=== PATIENT | male | born 1955 | race Hispanic/Latino ===

== ENCOUNTER 2022-04-17 13:19 | Inpatient (IN) | payer OTHER, MEDICAID ==
[~2022-04-17 13:19] MED LIST: Iopamidol-370 76% 500 ML MDV (1 ML CHARGE) ONE
[2022-04-17] MEDS ORDERED: Rocuronium Bromide 10 MG/ML (10ML VIAL) ONE (13:24)
[2022-04-17] MEDS ORDERED: CEFAZOLIN 2 GM VIAL ONE (13:26)
[2022-04-17] MEDS ORDERED: Boostrix 0.5 ML (Tdap) VIAL (>/=7 yrs of age) ONE (13:26)
[2022-04-17] MEDS ORDERED: Lorazepam 2 MG/ML VIAL SLOW IVP PRN (13:30)
[2022-04-17] MEDS ORDERED: Propofol 1,000 MG/100 ML VIAL IV PRN (13:30)
[2022-04-17] MEDS ORDERED: Fentanyl CADD 100 ML IV SCH (13:30)
[2022-04-17] MEDS ORDERED: Morphine 2 MG/ML VIAL SLOW IVP PRN (13:30)
[2022-04-17] MEDS ORDERED: Propofol BOLUS 1,000 MG/100 ML VIAL IV PRN (13:30)
[2022-04-17] MEDS ORDERED: Fentanyl BOLUS 250 ML IVPB PRN (13:30)
[2022-04-17 13:31] LABS: #Eosinphils 0.2 thou/uL (0.0-0.7); #Lymphocytes 4.1 thou/uL (1.20-3.40); #Monocytes 0.8 thou/uL (0.11-0.59); #Neutrophils 9.1 thou/uL (1.40-6.50); %Basophils 0.2 % (0.0-1.0); %Eosinophils 1.1 % (0.0-10.0); %Lymphocytes 28.8 % (21.0-51.0); %Monocytes 5.6 % (0.0-10.0); %Neutrophils 64.3 % (42.0-75.0); Hemoglobin 11.3 g/dL (14.0-18.0); Mean Corpuscular HGB CONC 32.9 g/dL (32.0-36.0); Mean Corpuscular Hemoglobin 30.9 pg (27.0-31.0); Mean Corpuscular Volume 93.8 fl (78.0-98.0); Mean Platelet Volume 7.7 fL (7.4-10.4); Platelet Count 236 10x3/uL (130-400); RBC Distribution Width 10.9 % (11.5-14.5); Red Blood Cell (RBC) Count 3.65 mill/uL (4.70-6.10); White Blood Cell (WBC) Count 14.2 10x3/uL (4.8-10.8)
[2022-04-17 13:42] LABS: PTT 27.9 sec (22.9-36.1); Prothrombin Time 13.7 sec (12.0-14.7)
[2022-04-17] MEDS ORDERED: Propofol 1,000 MG/100 ML VIAL IV ONE (13:43)
[2022-04-17 14:02] LABS: Albumin 4.1 g/dL (3.4-4.8); Calcium 8.9 mg/dL (7.8-10.44); Chloride 106 mmol/L (98-107); Potassium 4.9 mmol/L (3.5-5.1); Sodium 134 mmol/L (136-145)
[2022-04-17 14:03] LABS: Glucose 279 mg/dL (80-115)
[2022-04-17 14:04] LABS: Globulin 3.8 g/dL (2.4-3.5); Protein, Total 7.9 g/dL (5.8-8.1)
[2022-04-17] MEDS ORDERED: Dextrose 50% Abboject 50 ML SYRINGE SLOW IVP PRN (14:04)
[2022-04-17] MEDS ORDERED: Ipratropium/Albuterol 3 ML NEB NEB PRN (14:04)
[2022-04-17] MEDS ORDERED: hydrALAZINE 20 MG/ML VIAL SLOW IVP PRN (14:04)
[2022-04-17] MEDS ORDERED: Dextrose 5% in Water 1,000 ML IV PRN (14:04)
[2022-04-17 14:05] LABS: Anion Gap 20 mmol/L (10-20); Bilirubin, Total 0.4 mg/dL (0.2-1.2); Carbon Dioxide 13 mmol/L (23-31)
[2022-04-17 14:06] LABS: Alkaline Phosphatase 117 U/L (40-110)
[2022-04-17 14:07] LABS: BUN (Urea Nitrogen) 19 mg/dL (8.4-25.7); Calc. Creatinine Clearance 0 mL/min (70-130); Estimated GFR 60
[2022-04-17 14:08] LABS: AST (SGOT) 66 U/L (5-34)
[2022-04-17 14:09] LABS: ALT (SGPT) 42 U/L (8-55); Lipase 37 U/L (8-78)
[2022-04-17] MEDS ORDERED: hydrALAZINE 20 MG/ML VIAL ONE ×2 (14:15→14:16)
[2022-04-17 14:16] LABS: Actual Bicarbonate (HCO3a) 19.3 mEq/L (22-28); Analyzer IN Cardio ER; Base Excess (BEa) -2.2 mEq/L (-2.0 to +3.0); Calcium, Ionized (arterial) 1.06 mmol/L (1.12-1.30); Carboxyhemoglobin (COHb) 0.2 gm% (0.0-3.0); O2 Tension (PaO2), arterial 617.5 mmHg (> 80.0); Potassium - ABG Lab 3.83 mmol/L (3.70-5.30); pH, Arterial 7.53 (7.35-7.45)
[2022-04-17] MEDS ORDERED: Labetalol HCl 100 MG/20 ML VIAL SLOW IVP PRN (14:16)
[2022-04-17 14:17] LABS: CO2 Tension 23.5 mmHg (35.0-45.0)
[2022-04-17 14:18] LABS: ALV-art Gradient 66.125 mmHg (0-20); Puncture Site RRA
[2022-04-17 14:43] LABS: Bilirubin Negative (Negative); Blood, Urine Trace (Negative); Clarity Clear (Clear); Glucose, Urine (Dipstick) Normal (Negative); Ketone, Urine Negative (Negative); Leukocyte Negative Leu/uL (Negative); Nitrite Negative (Negative); Protein, Urine (Dipstick) 30 mg/dL (Neg-Trace); RBC/HPF 0-3 HPF (0-3); Specific Gravity, Urine 1.018 (1.002-1.036); Squamous Epithelial 0-3 HPF (0-3); Transitional Epithelial 0-3 HPF (None Seen); Urobilinogen Normal mg/dL (Less than 2); WBC/HPF 0-3 HPF (0-3); pH, Urine 6.5 (5.0-9.0)
[2022-04-17 14:46] LABS: Amphetamine Not Detected (NotDetected); Barbiturates Screen Not Detected (NotDetected); Benzodiazepine Screen Not Detected (NotDetected); Cocaine Metabolite Screen Not Detected (NotDetected); Methadone Not Detected (NotDetected); Methamphetamine Not Detected (NotDetected); Opiate Screen Not Detected (NotDetected); Oxycodone Screen Not Detected (NotDetected); Phencyclidine (PCP) Not Detected (NotDetected); THC/Cannabinoid Screen Not Detected (NotDetected); Tricyclic Screen Not Detected (NotDetected)
[2022-04-17 14:48] LABS: Acetaminophen Less than 10.0 mcg/mL (10.0-30.0); Alcohol Less than 10 mg/dL (Less than 10); Magnesium 1.5 mg/dL (1.6-2.6); Salicylate Less than 8.0 mg/dL (15.0-30.0)
[2022-04-17 14:52] LABS: Bacteria/HPF Rare-Few HPF (None Seen)
[2022-04-17] MEDS ORDERED: Aspirin 325 MG TAB PO SCH (15:00)
[2022-04-17] MEDS ORDERED: Sodium Phosphate 30 MMOL in Sodium Chloride 0.9% 250 ML 250 ML IVPB SCH (15:00)
[2022-04-17] MEDS ORDERED: Acetaminophen 500 MG TAB PO SCH (15:15)
[2022-04-17] MEDS ORDERED: Magnesium Sulfate In Water 4 GM in Premix Bag 1 BAG IVPB SCH (15:15)
[2022-04-17 15:21] LABS: SARS-CoV-2 NAA Rapid Test Not Detected (NotDetected)
[2022-04-17] MEDS: Sodium Chloride 0.9% 1,000 ML IV SCH (15:33)
[2022-04-17] MEDS ORDERED: Calcium Chloride 13.6 MEQ in Sodium Chloride 0.9% 100 ML IVPB SCH (16:00)
[2022-04-17 16:08] LABS: Actual Bicarbonate (HCO3a) 20.8 mEq/L (22-28); Base Excess (BEa) -2.2 mEq/L (-2.0 to +3.0); CO2 Tension 30.1 mmHg (35.0-45.0); Calcium, Ionized (arterial) 1.15 mmol/L (1.12-1.30); Carboxyhemoglobin (COHb) 0.5 gm% (0.0-3.0); Hemoglobin (Hb) 11.2 g/dL (14.0-18.0); O2 Tension (PaO2), arterial 156.1 mmHg (> 80.0); Potassium - ABG Lab 4.36 mmol/L (3.70-5.30); pH, Arterial 7.46 (7.35-7.45)
[2022-04-17 16:13] LABS: ALV-art Gradient 20.175 mmHg (0-20); Puncture Site RRA
[2022-04-17 16:35] LABS: Lactic Acid 2.2 mmol/L (0.5-2.2)
[2022-04-17] MEDS: Insulin Regular 300 UNITS/3 ML VIAL SC PRN ×2 (18:26→22:29)
[2022-04-17] MEDS: Ipratropium/Albuterol 3 ML NEB NEB SCH (19:09)
[2022-04-17] MEDS: Famotidine/PF 20 mg/2ml Vial SLOW IVP SCH (20:21)
[2022-04-17] MEDS: Senokot S 8.6-50 MG TAB PO SCH (20:21)
[2022-04-17] MEDS: Acetaminophen 500 MG TAB PO SCH (23:16)
[2022-04-18] MEDS: Sodium Chloride 0.9% 1,000 ML IV SCH ×3 (04:06→20:02)
[2022-04-18 04:11] LABS: #Lymphocytes 0.9 thou/uL (1.20-3.40); #Monocytes 1.2 thou/uL (0.11-0.59); #Neutrophils 10.1 thou/uL (1.40-6.50); %Basophils 0.1 % (0.0-1.0); %Eosinophils 0.2 % (0.0-10.0); %Lymphocytes 7.5 % (21.0-51.0); %Monocytes 9.6 % (0.0-10.0); %Neutrophils 82.7 % (42.0-75.0); Hemoglobin 8.8 g/dL (14.0-18.0); Mean Corpuscular HGB CONC 34.3 g/dL (32.0-36.0); Mean Corpuscular Hemoglobin 31.9 pg (27.0-31.0); Mean Corpuscular Volume 92.8 fl (78.0-98.0); Mean Platelet Volume 8.3 fL (7.4-10.4); Platelet Count 151 10x3/uL (130-400); RBC Distribution Width 10.9 % (11.5-14.5); Red Blood Cell (RBC) Count 2.76 mill/uL (4.70-6.10); White Blood Cell (WBC) Count 12.2 10x3/uL (4.8-10.8)
[2022-04-18 04:23] LABS: Lactic Acid 1.9 mmol/L (0.5-2.2)
[2022-04-18 04:37] LABS: Anion Gap 16 mmol/L (10-20); BUN (Urea Nitrogen) 16 mg/dL (8.4-25.7); Calc. Creatinine Clearance 57 mL/min (70-130); Calcium 8.7 mg/dL (7.8-10.44); Carbon Dioxide 19 mmol/L (23-31); Chloride 107 mmol/L (98-107); Estimated GFR 68; Glucose 203 mg/dL (80-115); Magnesium 2.4 mg/dL (1.6-2.6); Phosphorus 4.4 mg/dL (2.3-4.7); Potassium 4.5 mmol/L (3.5-5.1); Sodium 137 mmol/L (136-145)
[2022-04-18] MEDS: Acetaminophen 500 MG TAB PO SCH ×3 (05:12→17:48)
[2022-04-18 06:50] LABS: Actual Bicarbonate (HCO3a) 22.2 mEq/L (22-28); Base Excess (BEa) -1.6 mEq/L (-2.0 to +3.0); CO2 Tension 33.7 mmHg (35.0-45.0); Calcium, Ionized (arterial) 1.12 mmol/L (1.12-1.30); Carboxyhemoglobin (COHb) 0.2 gm% (0.0-3.0); Hemoglobin (Hb) 9.2 g/dL (14.0-18.0); O2 Tension (PaO2), arterial 146.2 mmHg (> 80.0); Potassium - ABG Lab 4.38 mmol/L (3.70-5.30); pH, Arterial 7.44 (7.35-7.45)
[2022-04-18] MEDS: Ipratropium/Albuterol 3 ML NEB NEB SCH ×3 (07:08→18:37)
[2022-04-18 07:10] LABS: ALV-art Gradient 25.575 mmHg (0-20); Puncture Site RBA
[2022-04-18] MEDS: Lisinopril 2.5 MG TAB PO SCH (08:07)
[2022-04-18] MEDS: Aspirin 325 MG TAB PO SCH (08:07)
[2022-04-18] MEDS: Famotidine/PF 20 mg/2ml Vial SLOW IVP SCH ×2 (08:07→20:02)
[2022-04-18] MEDS: Polyethylene Glycol 3350 17 GM Packet PO SCH (08:07)
[2022-04-18] MEDS: Senokot S 8.6-50 MG TAB PO SCH ×2 (08:07→20:02)
[2022-04-18] MEDS: Ondansetron PF 4 MG/2 ML Vial IVP PRN ×2 (10:48→14:47)
[2022-04-18] MEDS: Insulin Regular 300 UNITS/3 ML VIAL SC PRN ×2 (11:11→16:58)
[2022-04-18] MEDS ORDERED: Lidocaine 1% (PF) 30 ML VIAL SC SCH (12:45)
[2022-04-18] MEDS ORDERED: Lidocaine 1% (PF) 30 ML VIAL ONE (12:54)
[2022-04-18] MEDS: Scopolamine 1.5 mg/72 hour Patch TD SCH (14:07)
[2022-04-18] MEDS ORDERED: Midazolam HCl 2 mg/2 ml Vial ONE (14:32)
[2022-04-18] MEDS ORDERED: Fentanyl 100 MCG/2 ML VIAL SLOW IVP SCH (14:45)
[2022-04-19] MEDS: Acetaminophen 500 MG TAB PO SCH ×2 (00:30→05:17)
[2022-04-19 04:04] LABS: #Lymphocytes 0.8 thou/uL (1.20-3.40); #Monocytes 1.1 thou/uL (0.11-0.59); %Basophils 0.1 % (0.0-1.0); %Eosinophils 0.1 % (0.0-10.0); %Lymphocytes 6.1 % (21.0-51.0); %Monocytes 8.7 % (0.0-10.0); Hemoglobin 8.3 g/dL (14.0-18.0); Mean Corpuscular HGB CONC 34.2 g/dL (32.0-36.0); Mean Corpuscular Volume 93.7 fl (78.0-98.0); Mean Platelet Volume 8.2 fL (7.4-10.4); Platelet Count 130 10x3/uL (130-400); Red Blood Cell (RBC) Count 2.59 mill/uL (4.70-6.10); White Blood Cell (WBC) Count 12.9 10x3/uL (4.8-10.8)
[2022-04-19 04:41] LABS: Anion Gap 13 mmol/L (10-20); BUN (Urea Nitrogen) 13 mg/dL (8.4-25.7); Calc. Creatinine Clearance 76 mL/min (70-130); Calcium 7.9 mg/dL (7.8-10.44); Carbon Dioxide 19 mmol/L (23-31); Chloride 108 mmol/L (98-107); Estimated GFR 94; Glucose 181 mg/dL (80-115); Phosphorus 3.1 mg/dL (2.3-4.7); Potassium 4.1 mmol/L (3.5-5.1); Sodium 136 mmol/L (136-145)
[2022-04-19] MEDS: Ipratropium/Albuterol 3 ML NEB NEB SCH ×3 (06:46→18:46)
[2022-04-19] MEDS ORDERED: Sodium Phosphate 15 MMOL in Sodium Chloride 0.9% 250 ML 250 ML IVPB SCH (09:00)
[2022-04-19] MEDS: Sodium Chloride 0.9% 1,000 ML IV SCH (09:33)
[2022-04-19] MEDS: Famotidine/PF 20 mg/2ml Vial SLOW IVP SCH ×2 (10:45→21:31)
[2022-04-19] MEDS: Polyethylene Glycol 3350 17 GM Packet PO SCH (10:45)
[2022-04-19] MEDS: Aspirin 325 MG TAB PO SCH (10:45)
[2022-04-19] MEDS: Senokot S 8.6-50 MG TAB PO SCH ×2 (10:45→21:32)
[2022-04-19] MEDS: Lisinopril 2.5 MG TAB PO SCH (10:45)
[2022-04-19] MEDS: Acetaminophen 325 MG TAB PO SCH ×2 (10:45→19:22)
[2022-04-19] MEDS: Insulin Regular 300 UNITS/3 ML VIAL SC PRN ×2 (17:43→21:32)
[2022-04-19] MEDS: Acetaminophen/Codeine 30-300mg Tablet PO PRN (19:23)
[2022-04-19] MEDS ORDERED: Sodium Chloride 0.9% 1,000 ML IV SCH (20:45)
[2022-04-20] MEDS: Acetaminophen 325 MG TAB PO SCH ×4 (00:22→17:34)
[2022-04-20] MEDS: Insulin Regular 300 UNITS/3 ML VIAL SC PRN ×2 (04:32→15:10)
[2022-04-20 05:05] LABS: #Lymphocytes 0.9 thou/uL (1.20-3.40); #Monocytes 1.2 thou/uL (0.11-0.59); #Neutrophils 11.5 thou/uL (1.40-6.50); %Basophils 0.2 % (0.0-1.0); %Eosinophils 0.2 % (0.0-10.0); %Lymphocytes 6.3 % (21.0-51.0); %Neutrophils 84.3 % (42.0-75.0); Hemoglobin 9.8 g/dL (14.0-18.0); Mean Corpuscular HGB CONC 33.6 g/dL (32.0-36.0); Mean Corpuscular Hemoglobin 31.7 pg (27.0-31.0); Mean Corpuscular Volume 94.4 fl (78.0-98.0); Mean Platelet Volume 8.9 fL (7.4-10.4); Platelet Count 137 10x3/uL (130-400); RBC Distribution Width 11.1 % (11.5-14.5); Red Blood Cell (RBC) Count 3.08 mill/uL (4.70-6.10); White Blood Cell (WBC) Count 13.6 10x3/uL (4.8-10.8)
[2022-04-20 05:34] LABS: Anion Gap 11 mmol/L (10-20); BUN (Urea Nitrogen) 16 mg/dL (8.4-25.7); Calc. Creatinine Clearance 74 mL/min (70-130); Calcium 7.9 mg/dL (7.8-10.44); Carbon Dioxide 20 mmol/L (23-31); Chloride 108 mmol/L (98-107); Estimated GFR 92; Glucose 210 mg/dL (80-115); Magnesium 1.9 mg/dL (1.6-2.6); Phosphorus 2.4 mg/dL (2.3-4.7); Potassium 4.2 mmol/L (3.5-5.1); Sodium 135 mmol/L (136-145)
[2022-04-20] MEDS: Ipratropium/Albuterol 3 ML NEB NEB SCH ×3 (06:41→18:58)
[2022-04-20] MEDS ORDERED: Sodium Phosphate 15 MMOL in Sodium Chloride 0.9% 250 ML 250 ML IVPB SCH (09:00)
[2022-04-20] MEDS: Aspirin 325 MG TAB PO SCH (09:49)
[2022-04-20] MEDS: Senokot S 8.6-50 MG TAB PO SCH ×2 (09:49→21:03)
[2022-04-20] MEDS: Polyethylene Glycol 3350 17 GM Packet PO SCH (09:50)
[2022-04-20] MEDS: Famotidine 20 MG TAB PO SCH ×2 (09:50→21:03)
[2022-04-20] MEDS: Tamsulosin HCl 0.4 MG CAP PO SCH (09:50)
[2022-04-20] MEDS: Lisinopril 2.5 MG TAB PO SCH (09:50)
[2022-04-21] MEDS: Acetaminophen 325 MG TAB PO SCH ×4 (00:59→17:43)
[2022-04-21 04:16] LABS: #Lymphocytes 0.7 thou/uL (1.20-3.40); #Neutrophils 7.5 thou/uL (1.40-6.50); %Basophils 0.1 % (0.0-1.0); %Eosinophils 0.4 % (0.0-10.0); %Neutrophils 81.5 % (42.0-75.0); Hemoglobin 8.6 g/dL (14.0-18.0); Mean Corpuscular HGB CONC 33.9 g/dL (32.0-36.0); Mean Corpuscular Hemoglobin 31.8 pg (27.0-31.0); Mean Corpuscular Volume 93.7 fl (78.0-98.0); Mean Platelet Volume 8.7 fL (7.4-10.4); Platelet Count 155 10x3/uL (130-400); RBC Distribution Width 10.9 % (11.5-14.5); Red Blood Cell (RBC) Count 2.71 mill/uL (4.70-6.10); White Blood Cell (WBC) Count 9.2 10x3/uL (4.8-10.8)
[2022-04-21 04:40] LABS: Anion Gap 12 mmol/L (10-20); BUN (Urea Nitrogen) 24 mg/dL (8.4-25.7); Calc. Creatinine Clearance 73 mL/min (70-130); Carbon Dioxide 22 mmol/L (23-31); Chloride 106 mmol/L (98-107); Estimated GFR 91; Glucose 321 mg/dL (80-115); Phosphorus 2.1 mg/dL (2.3-4.7); Potassium 3.6 mmol/L (3.5-5.1); Sodium 136 mmol/L (136-145)
[2022-04-21] MEDS: Ipratropium/Albuterol 3 ML NEB NEB SCH ×3 (06:30→19:46)
[2022-04-21] MEDS ORDERED: Potassium Phosphate 30 MMOL in Sodium Chloride 0.9% 250 ML 250 ML IVPB SCH (07:30)
[2022-04-21] MEDS: Aspirin 325 MG TAB PO SCH (08:00)
[2022-04-21] MEDS: Lisinopril 2.5 MG TAB PO SCH (08:00)
[2022-04-21] MEDS: Tamsulosin HCl 0.4 MG CAP PO SCH (08:00)
[2022-04-21] MEDS: Famotidine 20 MG TAB PO SCH ×2 (08:00→20:58)
[2022-04-21] MEDS: Polyethylene Glycol 3350 17 GM Packet PO SCH (08:07)
[2022-04-21] MEDS: Senokot S 8.6-50 MG TAB PO SCH ×2 (08:08→22:31)
[2022-04-21] MEDS: Insulin Regular 300 UNITS/3 ML VIAL SC PRN ×3 (08:22→17:41)
[2022-04-21] MEDS: Scopolamine 1.5 mg/72 hour Patch TD SCH (12:40)
[2022-04-21 17:50] LABS: Bacteria/HPF 4+ HPF (None Seen); Bilirubin Negative (Negative); Blood, Urine Negative (Negative); CAUTI Indications for Culture Dysuria,urgency,freq; Clarity Clear (Clear); Glucose, Urine (Dipstick) 500 mg/dL (Negative); Ketone, Urine Negative (Negative); Leukocyte Negative Leu/uL (Negative); Nitrite 1+ (Negative); Protein, Urine (Dipstick) 30 mg/dL (Neg-Trace); RBC/HPF 0-3 HPF (0-3); Specific Gravity, Urine 1.025 (1.002-1.036); Squamous Epithelial 0-3 HPF (0-3); Urobilinogen Normal mg/dL (Less than 2); WBC/HPF 0-3 HPF (0-3); pH, Urine 5.5 (5.0-9.0)
[2022-04-21 17:52] LABS: Urine Culture Reflex No No
[2022-04-21] MEDS: Ciprofloxacin 500 MG TAB PO SCH (20:58)
[2022-04-21] MEDS: Acetaminophen/Codeine 30-300mg Tablet PO PRN (21:01)
[2022-04-22] MEDS: Acetaminophen 325 MG TAB PO SCH ×5 (00:13→23:11)
[2022-04-22] MEDS: Insulin Regular 300 UNITS/3 ML VIAL SC PRN ×5 (00:26→22:56)
[2022-04-22] MEDS: Ciprofloxacin 500 MG TAB PO SCH ×2 (05:22→20:13)
[2022-04-22] MEDS: Ipratropium/Albuterol 3 ML NEB NEB SCH ×3 (07:00→19:50)
[2022-04-22] MEDS: Tamsulosin HCl 0.4 MG CAP PO SCH (08:16)
[2022-04-22] MEDS: Famotidine 20 MG TAB PO SCH ×2 (08:16→20:12)
[2022-04-22] MEDS: Lisinopril 2.5 MG TAB PO SCH (08:16)
[2022-04-22] MEDS: Aspirin 325 MG TAB PO SCH (08:16)
[2022-04-22] MEDS: Polyethylene Glycol 3350 17 GM Packet PO SCH (08:17)
[2022-04-22] MEDS: Senokot S 8.6-50 MG TAB PO SCH ×2 (08:17→21:11)
[2022-04-22] MEDS: Acetaminophen/Codeine 30-300mg Tablet PO PRN ×2 (08:22→20:14)
[2022-04-23] MEDS: Ciprofloxacin 500 MG TAB PO SCH (05:17)
[2022-04-23] MEDS: Insulin Regular 300 UNITS/3 ML VIAL SC PRN ×4 (05:17→17:20)
[2022-04-23] MEDS: Acetaminophen 325 MG TAB PO SCH ×3 (05:17→17:20)
[2022-04-23 06:32] LABS: #Eosinphils 0.1 thou/uL (0.0-0.7); #Lymphocytes 0.7 thou/uL (1.20-3.40); #Monocytes 1.1 thou/uL (0.11-0.59); #Neutrophils 9.6 thou/uL (1.40-6.50); %Eosinophils 0.6 % (0.0-10.0); %Lymphocytes 6.1 % (21.0-51.0); %Monocytes 9.6 % (0.0-10.0); %Neutrophils 83.8 % (42.0-75.0); Hemoglobin 8.1 g/dL (14.0-18.0); Mean Corpuscular HGB CONC 32.9 g/dL (32.0-36.0); Mean Corpuscular Hemoglobin 31.4 pg (27.0-31.0); Mean Corpuscular Volume 95.3 fl (78.0-98.0); Mean Platelet Volume 8.3 fL (7.4-10.4); Platelet Count 207 10x3/uL (130-400); RBC Distribution Width 11.6 % (11.5-14.5); Red Blood Cell (RBC) Count 2.58 mill/uL (4.70-6.10); White Blood Cell (WBC) Count 11.4 10x3/uL (4.8-10.8)
[2022-04-23 07:01] LABS: Anion Gap 15 mmol/L (10-20); BUN (Urea Nitrogen) 28 mg/dL (8.4-25.7); Calc. Creatinine Clearance 60 mL/min (70-130); Carbon Dioxide 22 mmol/L (23-31); Chloride 107 mmol/L (98-107); Estimated GFR 69; Glucose 343 mg/dL (80-115); Magnesium 1.9 mg/dL (1.6-2.6); Phosphorus 3.1 mg/dL (2.3-4.7); Potassium 4.6 mmol/L (3.5-5.1); Sodium 139 mmol/L (136-145)
[2022-04-23] MEDS: Ipratropium/Albuterol 3 ML NEB NEB SCH ×3 (08:21→18:33)
[2022-04-23] MEDS: Lisinopril 2.5 MG TAB PO SCH (08:33)
[2022-04-23] MEDS: Aspirin 325 MG TAB PO SCH (08:33)
[2022-04-23] MEDS: Famotidine 20 MG TAB PO SCH ×2 (08:33→20:28)
[2022-04-23] MEDS: Senokot S 8.6-50 MG TAB PO SCH ×2 (08:34→20:28)
[2022-04-23] MEDS: Tamsulosin HCl 0.4 MG CAP PO SCH (08:34)
[2022-04-23] MEDS: Polyethylene Glycol 3350 17 GM Packet PO SCH (08:34)
[2022-04-23] MEDS: Insulin Glargine 30 UNITS/0.3 ML VIAL SC SCH (08:34)
[2022-04-23] MEDS: Nitrofurantoin Monohyd/M-Cryst 100 MG CAP PO SCH (20:28)
[2022-04-24] MEDS: Insulin Regular 300 UNITS/3 ML VIAL SC PRN ×6 (00:02→20:36)
[2022-04-24] MEDS: Acetaminophen 325 MG TAB PO SCH ×4 (00:02→17:24)
[2022-04-24] MEDS: Ipratropium/Albuterol 3 ML NEB NEB SCH ×3 (06:36→19:25)
[2022-04-24] MEDS: Lisinopril 2.5 MG TAB PO SCH (08:18)
[2022-04-24] MEDS: Nitrofurantoin Monohyd/M-Cryst 100 MG CAP PO SCH ×2 (08:18→20:35)
[2022-04-24] MEDS: Polyethylene Glycol 3350 17 GM Packet PO SCH (08:18)
[2022-04-24] MEDS: Famotidine 20 MG TAB PO SCH ×2 (08:18→20:35)
[2022-04-24] MEDS: Aspirin 325 MG TAB PO SCH (08:18)
[2022-04-24] MEDS: Tamsulosin HCl 0.4 MG CAP PO SCH (08:18)
[2022-04-24] MEDS: Senokot S 8.6-50 MG TAB PO SCH ×2 (08:18→20:36)
[2022-04-24] MEDS: Insulin Glargine 30 UNITS/0.3 ML VIAL SC SCH ×2 (08:18→20:35)
[2022-04-24] MEDS: Scopolamine 1.5 mg/72 hour Patch TD SCH (13:01)
[2022-04-24] MEDS: Amantadine HCl 10 mg/ml Oral Solution PER TUBE SCH (20:35)
[2022-04-24] MEDS ORDERED: Amantadine HCl 10 mg/ml Oral Solution PO SCH (21:00)
[2022-04-25] MEDS: Acetaminophen 325 MG TAB PO SCH ×4 (00:27→17:59)
[2022-04-25] MEDS: Insulin Regular 300 UNITS/3 ML VIAL SC PRN ×6 (01:00→21:57)
[2022-04-25] MEDS: Ipratropium/Albuterol 3 ML NEB NEB SCH ×3 (06:42→18:32)
[2022-04-25] MEDS: Famotidine 20 MG TAB PO SCH ×2 (08:24→21:56)
[2022-04-25] MEDS: Lisinopril 2.5 MG TAB PO SCH (08:24)
[2022-04-25] MEDS: Tamsulosin HCl 0.4 MG CAP PO SCH (08:24)
[2022-04-25] MEDS: Aspirin 325 MG TAB PO SCH (08:24)
[2022-04-25] MEDS: Amantadine HCl 10 mg/ml Oral Solution PER TUBE SCH ×2 (08:24→21:56)
[2022-04-25] MEDS: Nitrofurantoin Monohyd/M-Cryst 100 MG CAP PO SCH ×2 (08:24→21:56)
[2022-04-25] MEDS: Polyethylene Glycol 3350 17 GM Packet PO SCH (08:25)
[2022-04-25] MEDS: Senokot S 8.6-50 MG TAB PO SCH ×2 (08:25→21:57)
[2022-04-25] MEDS: Insulin Glargine 30 UNITS/0.3 ML VIAL SC SCH ×2 (08:25→21:57)
[2022-04-25] MEDS: Acetaminophen/Codeine 30-300mg Tablet PO PRN (20:29)
[2022-04-26] MEDS: Acetaminophen 325 MG TAB PO SCH ×4 (01:00→17:46)
[2022-04-26] MEDS: Acetaminophen/Codeine 30-300mg Tablet PO PRN (05:34)
[2022-04-26] MEDS: Ipratropium/Albuterol 3 ML NEB NEB SCH ×3 (07:34→19:36)
[2022-04-26] MEDS: Insulin Glargine 30 UNITS/0.3 ML VIAL SC SCH ×2 (08:43→21:40)
[2022-04-26] MEDS: Insulin Regular 300 UNITS/3 ML VIAL SC PRN ×3 (08:44→17:52)
[2022-04-26] MEDS: Amantadine HCl 10 mg/ml Oral Solution PER TUBE SCH ×2 (08:45→21:39)
[2022-04-26] MEDS: Famotidine 20 MG TAB PO SCH ×2 (08:46→21:40)
[2022-04-26] MEDS: Aspirin 325 MG TAB PO SCH (08:46)
[2022-04-26] MEDS: Tamsulosin HCl 0.4 MG CAP PO SCH (08:46)
[2022-04-26] MEDS: Nitrofurantoin Monohyd/M-Cryst 100 MG CAP PO SCH ×2 (08:46→21:39)
[2022-04-26] MEDS: Lisinopril 2.5 MG TAB PO SCH (08:48)
[2022-04-26] MEDS: Polyethylene Glycol 3350 17 GM Packet PO SCH (08:48)
[2022-04-26] MEDS: Senokot S 8.6-50 MG TAB PO SCH ×2 (08:48→21:40)
[2022-04-27] MEDS: Acetaminophen 325 MG TAB PO SCH ×4 (00:14→18:20)
[2022-04-27] MEDS: Insulin Regular 300 UNITS/3 ML VIAL SC PRN ×6 (00:15→22:08)
[2022-04-27 06:10] LABS: #Lymphocytes 0.8 thou/uL (1.20-3.40); #Monocytes 1.3 thou/uL (0.11-0.59); #Neutrophils 16.4 thou/uL (1.40-6.50); %Basophils 0.2 % (0.0-1.0); %Eosinophils 0.3 % (0.0-10.0); %Lymphocytes 4.5 % (21.0-51.0); %Monocytes 6.9 % (0.0-10.0); %Neutrophils 88.2 % (42.0-75.0); Hemoglobin 8.8 g/dL (14.0-18.0); Mean Corpuscular HGB CONC 32.7 g/dL (32.0-36.0); Mean Corpuscular Hemoglobin 31.3 pg (27.0-31.0); Mean Corpuscular Volume 95.7 fl (78.0-98.0); Mean Platelet Volume 8.4 fL (7.4-10.4); Platelet Count 352 10x3/uL (130-400); RBC Distribution Width 11.9 % (11.5-14.5); Red Blood Cell (RBC) Count 2.82 mill/uL (4.70-6.10); White Blood Cell (WBC) Count 18.6 10x3/uL (4.8-10.8)
[2022-04-27 06:32] LABS: Anion Gap 14 mmol/L (10-20); BUN (Urea Nitrogen) 49 mg/dL (8.4-25.7); Calc. Creatinine Clearance 58 mL/min (70-130); Carbon Dioxide 26 mmol/L (23-31); Chloride 105 mmol/L (98-107); Estimated GFR 60; Glucose 285 mg/dL (80-115); Potassium 4.8 mmol/L (3.5-5.1); Sodium 140 mmol/L (136-145)
[2022-04-27] MEDS: Ipratropium/Albuterol 3 ML NEB NEB SCH ×3 (06:57→19:17)
[2022-04-27] MEDS ORDERED: Piperacillin/Tazobactam 3.375 GM in Sodium Chloride 0.9% 100 ML IVPB SCH ×2 (07:30→08:00)
[2022-04-27] MEDS: Amantadine HCl 10 mg/ml Oral Solution PER TUBE SCH ×2 (08:32→22:16)
[2022-04-27] MEDS: Aspirin 325 MG TAB PO SCH (08:32)
[2022-04-27] MEDS: Famotidine 20 MG TAB PO SCH ×2 (08:33→22:09)
[2022-04-27] MEDS: Insulin Glargine 30 UNITS/0.3 ML VIAL SC SCH ×2 (08:33→22:09)
[2022-04-27] MEDS: Lisinopril 2.5 MG TAB PO SCH (08:34)
[2022-04-27] MEDS: Nitrofurantoin Monohyd/M-Cryst 100 MG CAP PO SCH ×2 (08:34→22:09)
[2022-04-27] MEDS: Senokot S 8.6-50 MG TAB PO SCH ×2 (08:34→22:09)
[2022-04-27] MEDS: Polyethylene Glycol 3350 17 GM Packet PO SCH (08:34)
[2022-04-27] MEDS: Tamsulosin HCl 0.4 MG CAP PO SCH (08:34)
[2022-04-27 08:47] LABS: Bacteria/HPF None Seen HPF (None Seen); Bilirubin Negative (Negative); Blood, Urine Negative (Negative); CAUTI Indications for Culture Alt mental st,lethar; Clarity Clear (Clear); Glucose, Urine (Dipstick) Normal (Negative); Ketone, Urine Negative (Negative); Leukocyte Negative Leu/uL (Negative); Nitrite Negative (Negative); Protein, Urine (Dipstick) 20 mg/dL (Neg-Trace); RBC/HPF 0-3 HPF (0-3); Specific Gravity, Urine 1.024 (1.002-1.036); Squamous Epithelial None Seen HPF (0-3); WBC/HPF 0-3 HPF (0-3); pH, Urine 6.5 (5.0-9.0)
[2022-04-27 08:50] LABS: Urine Culture Reflex No No
[2022-04-27] MEDS: Piperacillin/Tazobactam 3.375 GM in Sodium Chloride 0.9% 100 ML IVPB SCH (16:01)
[2022-04-28] MEDS: Insulin Regular 300 UNITS/3 ML VIAL SC PRN ×5 (01:35→21:21)
[2022-04-28] MEDS: Piperacillin/Tazobactam 3.375 GM in Sodium Chloride 0.9% 100 ML IVPB SCH (01:45)
[2022-04-28] MEDS: Acetaminophen/Codeine 30-300mg Tablet PO PRN (01:46)
[2022-04-28] MEDS: Acetaminophen 325 MG TAB PO SCH ×5 (01:46→17:00)
[2022-04-28 06:15] LABS: Anion Gap 15 mmol/L (10-20); BUN (Urea Nitrogen) 61 mg/dL (8.4-25.7); Calc. Creatinine Clearance 48 mL/min (70-130); Calcium 7.9 mg/dL (7.8-10.44); Carbon Dioxide 26 mmol/L (23-31); Chloride 107 mmol/L (98-107); Estimated GFR 48; Glucose 224 mg/dL (80-115); Magnesium 3.1 mg/dL (1.6-2.6); Phosphorus 4.9 mg/dL (2.3-4.7); Potassium 4.7 mmol/L (3.5-5.1); Sodium 143 mmol/L (136-145)
[2022-04-28] MEDS: Ipratropium/Albuterol 3 ML NEB NEB SCH ×3 (06:18→18:19)
[2022-04-28 06:25] LABS: Band 13 % (5-11); Hemoglobin 8.1 g/dL (14.0-18.0); Hypochromia SLIGHT = 6-15 cells (100X) (0-5/hpf); Lymphocytes 8 % (21-51); MDiff Complete? YES; Mean Corpuscular HGB CONC 32.6 g/dL (32.0-36.0); Mean Corpuscular Hemoglobin 31.2 pg (27.0-31.0); Mean Corpuscular Volume 95.7 fl (78.0-98.0); Mean Platelet Volume 8.6 fL (7.4-10.4); Monocytes 4 % (0-10); Neutrophil 75 % (42-75); Nucleated RBC 1 % (0); Platelet Count 374 10x3/uL (130-400); Platelet Morphology Comment Appears Adequate; RBC Distribution Width 11.9 % (11.5-14.5); Red Blood Cell (RBC) Count 2.61 mill/uL (4.70-6.10); White Blood Cell (WBC) Count 23.5 10x3/uL (4.8-10.8)
[2022-04-28] MEDS ORDERED: Furosemide 40 MG/4 ML VIAL ONE (07:51)
[2022-04-28 08:13] LABS: Actual Bicarbonate (HCO3a) 25.4 mEq/L (22-28); Base Excess (BEa) -0.2 mEq/L (-2.0 to +3.0); CO2 Tension 45.8 mmHg (35.0-45.0); Calcium, Ionized (arterial) 1.04 mmol/L (1.12-1.30); Carboxyhemoglobin (COHb) 0.7 gm% (0.0-3.0); Hemoglobin (Hb) 8.8 g/dL (14.0-18.0); O2 Tension (PaO2), arterial 167.8 mmHg (> 80.0); Potassium - ABG Lab 5.02 mmol/L (3.70-5.30); pH, Arterial 7.36 (7.35-7.45)
[2022-04-28 08:14] LABS: Puncture Site Right Radial
[2022-04-28] MEDS ORDERED: Calcium Chloride 1 GM/10 ML Abboject SYRINGE IVP SCH (08:30)
[2022-04-28] MEDS: Cefepime 1 GM in Sodium Chloride 0.9% 100 ML IVPB SCH ×2 (08:33→21:19)
[2022-04-28] MEDS: Nitrofurantoin Monohyd/M-Cryst 100 MG CAP PO SCH (08:41)
[2022-04-28] MEDS: Tamsulosin HCl 0.4 MG CAP PO SCH (08:41)
[2022-04-28] MEDS: Aspirin 325 MG TAB PO SCH (08:41)
[2022-04-28] MEDS: Lisinopril 2.5 MG TAB PO SCH (08:41)
[2022-04-28] MEDS: Famotidine 20 MG TAB PO SCH ×2 (08:41→21:19)
[2022-04-28] MEDS: Amantadine HCl 10 mg/ml Oral Solution PER TUBE SCH ×2 (08:41→21:18)
[2022-04-28] MEDS: Senokot S 8.6-50 MG TAB PO SCH ×2 (08:41→21:20)
[2022-04-28] MEDS: Saccharomyces boulardii 250 MG CAP PO SCH (08:41)
[2022-04-28] MEDS: Polyethylene Glycol 3350 17 GM Packet PO SCH (08:41)
[2022-04-28] MEDS ORDERED: Furosemide 20 MG/2 ML VIAL SLOW IVP SCH (08:45)
[2022-04-28] MEDS ORDERED: Furosemide 40 MG/4 ML VIAL SLOW IVP SCH ×2 (08:45→17:00)
[2022-04-28] MEDS: Insulin Glargine 30 UNITS/0.3 ML VIAL SC SCH ×2 (10:38→21:19)
[2022-04-28] MEDS ORDERED: Ampicillin 2 GM in Sodium Chloride 0.9% 100 ML IVPB SCH (12:00)
[2022-04-28] MEDS ORDERED: Vancomycin 1.5 GRAM/300 ML BAG 1.5 GM in Premix Bag 1 BAG IVPB SCH (12:15)
[2022-04-28] MEDS ORDERED: Metolazone 2.5 MG TAB PO SCH (15:15)
[2022-04-28 20:22] LABS: Magnesium 2.8 mg/dL (1.6-2.6); Phosphorus 5.5 mg/dL (2.3-4.7); Potassium 4.3 mmol/L (3.5-5.1)
[2022-04-29] MEDS: Acetaminophen 325 MG TAB PO SCH ×5 (00:34→23:46)
[2022-04-29] MEDS: Insulin Regular 300 UNITS/3 ML VIAL SC PRN ×4 (00:47→12:56)
[2022-04-29 03:57] LABS: #Lymphocytes 1.2 thou/uL (1.20-3.40); #Monocytes 1.1 thou/uL (0.11-0.59); #Neutrophils 20.8 thou/uL (1.40-6.50); %Basophils 0.1 % (0.0-1.0); %Eosinophils 0.2 % (0.0-10.0); %Lymphocytes 5.2 % (21.0-51.0); %Monocytes 4.8 % (0.0-10.0); %Neutrophils 89.8 % (42.0-75.0); Hemoglobin 8.2 g/dL (14.0-18.0); Mean Corpuscular HGB CONC 32.4 g/dL (32.0-36.0); Mean Corpuscular Hemoglobin 31.3 pg (27.0-31.0); Mean Corpuscular Volume 96.4 fl (78.0-98.0); Mean Platelet Volume 8.8 fL (7.4-10.4); Platelet Count 444 10x3/uL (130-400); RBC Distribution Width 12.1 % (11.5-14.5); Red Blood Cell (RBC) Count 2.62 mill/uL (4.70-6.10); White Blood Cell (WBC) Count 23.2 10x3/uL (4.8-10.8)
[2022-04-29 04:24] LABS: Anion Gap 12 mmol/L (10-20); BUN (Urea Nitrogen) 57 mg/dL (8.4-25.7); Calc. Creatinine Clearance 45 mL/min (70-130); Calcium 8.5 mg/dL (7.8-10.44); Carbon Dioxide 30 mmol/L (23-31); Chloride 107 mmol/L (98-107); Estimated GFR 48; Glucose 218 mg/dL (80-115); Magnesium 3.1 mg/dL (1.6-2.6); Phosphorus 4.7 mg/dL (2.3-4.7); Potassium 3.9 mmol/L (3.5-5.1); Sodium 145 mmol/L (136-145)
[2022-04-29] MEDS: Ipratropium/Albuterol 3 ML NEB NEB SCH ×3 (08:01→18:18)
[2022-04-29] MEDS: Tamsulosin HCl 0.4 MG CAP PO SCH (09:46)
[2022-04-29] MEDS: Aspirin 325 MG TAB PO SCH (09:46)
[2022-04-29] MEDS: Senokot S 8.6-50 MG TAB PO SCH ×2 (09:46→21:22)
[2022-04-29] MEDS: Polyethylene Glycol 3350 17 GM Packet PO SCH (09:46)
[2022-04-29] MEDS: Famotidine 20 MG TAB PO SCH ×2 (09:46→21:22)
[2022-04-29] MEDS: Lisinopril 2.5 MG TAB PO SCH (09:46)
[2022-04-29] MEDS: Cefepime 1 GM in Sodium Chloride 0.9% 100 ML IVPB SCH ×2 (09:46→21:22)
[2022-04-29] MEDS: Saccharomyces boulardii 250 MG CAP PO SCH (09:47)
[2022-04-29] MEDS: Insulin Glargine 30 UNITS/0.3 ML VIAL SC SCH (09:47)
[2022-04-29] MEDS: Amantadine HCl 10 mg/ml Oral Solution PER TUBE SCH ×2 (09:47→21:22)
[2022-04-29] MEDS ORDERED: Acetaminophen/Codeine 30-300mg Tablet PO PRN (12:00)
[2022-04-29] MEDS ORDERED: Dextrose 5% in Water 1,000 ML IV PRN (16:02)
[2022-04-29] MEDS ORDERED: Dextrose 50% Abboject 50 ML SYRINGE SLOW IVP PRN (16:02)
[2022-04-29] MEDS ORDERED: Insulin Glargine 30 UNITS/0.3 ML VIAL SC SCH (16:15)
[2022-04-29] MEDS: HumaLOG 300 UNITS/3 ML VIAL SC PRN ×2 (17:01→21:04)
[2022-04-30] MEDS: HumaLOG 300 UNITS/3 ML VIAL SC PRN ×4 (02:03→17:24)
[2022-04-30 03:54] LABS: #Eosinphils 0.1 thou/uL (0.0-0.7); #Monocytes 1.1 thou/uL (0.11-0.59); #Neutrophils 17.1 thou/uL (1.40-6.50); %Basophils 0.1 % (0.0-1.0); %Eosinophils 0.5 % (0.0-10.0); %Lymphocytes 5.1 % (21.0-51.0); %Monocytes 5.5 % (0.0-10.0); %Neutrophils 88.7 % (42.0-75.0); Hemoglobin 8.1 g/dL (14.0-18.0); Mean Corpuscular HGB CONC 32.6 g/dL (32.0-36.0); Mean Corpuscular Hemoglobin 31.4 pg (27.0-31.0); Mean Corpuscular Volume 96.3 fl (78.0-98.0); Mean Platelet Volume 8.6 fL (7.4-10.4); Platelet Count 494 10x3/uL (130-400); RBC Distribution Width 12.1 % (11.5-14.5); Red Blood Cell (RBC) Count 2.58 mill/uL (4.70-6.10); White Blood Cell (WBC) Count 19.3 10x3/uL (4.8-10.8)
[2022-04-30 04:08] LABS: Anion Gap 13 mmol/L (10-20); BUN (Urea Nitrogen) 54 mg/dL (8.4-25.7); Calc. Creatinine Clearance 51 mL/min (70-130); Calcium 8.1 mg/dL (7.8-10.44); Carbon Dioxide 27 mmol/L (23-31); Chloride 108 mmol/L (98-107); Estimated GFR 57; Glucose 233 mg/dL (80-115); Phosphorus 4.7 mg/dL (2.3-4.7); Potassium 4.2 mmol/L (3.5-5.1); Sodium 144 mmol/L (136-145)
[2022-04-30] MEDS: Acetaminophen 325 MG TAB PO SCH ×3 (04:59→17:24)
[2022-04-30] MEDS: Ipratropium/Albuterol 3 ML NEB NEB SCH ×3 (08:26→18:57)
[2022-04-30] MEDS: Famotidine 20 MG TAB PO SCH (08:44)
[2022-04-30] MEDS: Saccharomyces boulardii 250 MG CAP PO SCH (08:44)
[2022-04-30] MEDS: Amantadine HCl 10 mg/ml Oral Solution PER TUBE SCH (08:44)
[2022-04-30] MEDS: Tamsulosin HCl 0.4 MG CAP PO SCH (08:44)
[2022-04-30] MEDS: Insulin Glargine 30 UNITS/0.3 ML VIAL SC SCH ×2 (08:44→22:48)
[2022-04-30] MEDS: Aspirin 325 MG TAB PO SCH (08:44)
[2022-04-30] MEDS: Senokot S 8.6-50 MG TAB PO SCH ×2 (08:45→22:48)
[2022-04-30] MEDS ORDERED: Piperacillin/Tazobactam 3.375 GM in Sodium Chloride 0.9% 100 ML IVPB SCH (08:45)
[2022-04-30] MEDS: Lisinopril 2.5 MG TAB PO SCH (08:45)
[2022-04-30] MEDS: Polyethylene Glycol 3350 17 GM Packet PO SCH (08:45)
[2022-04-30] MEDS: Piperacillin/Tazobactam 3.375 GM in Sodium Chloride 0.9% 100 ML IVPB SCH ×2 (13:00→22:48)
[2022-05-01] MEDS: Amantadine HCl 10 mg/ml Oral Solution PER TUBE SCH ×3 (00:30→21:24)
[2022-05-01] MEDS: Acetaminophen 325 MG TAB PO SCH ×4 (01:01→19:52)
[2022-05-01] MEDS: HumaLOG 300 UNITS/3 ML VIAL SC PRN (04:54)
[2022-05-01] MEDS: Piperacillin/Tazobactam 3.375 GM in Sodium Chloride 0.9% 100 ML IVPB SCH ×3 (04:55→21:23)
[2022-05-01 06:32] LABS: #Eosinphils 0.1 thou/uL (0.0-0.7); #Lymphocytes 1.1 thou/uL (1.20-3.40); #Monocytes 0.8 thou/uL (0.11-0.59); #Neutrophils 10.9 thou/uL (1.40-6.50); %Basophils 0.1 % (0.0-1.0); %Eosinophils 0.9 % (0.0-10.0); %Lymphocytes 8.7 % (21.0-51.0); %Neutrophils 84.3 % (42.0-75.0); Mean Corpuscular HGB CONC 30.4 g/dL (32.0-36.0); Mean Corpuscular Hemoglobin 29.9 pg (27.0-31.0); Mean Corpuscular Volume 98.4 fl (78.0-98.0); Mean Platelet Volume 10.1 fL (7.4-10.4); Platelet Count 438 10x3/uL (130-400); RBC Distribution Width 12.5 % (11.5-14.5); Red Blood Cell (RBC) Count 2.69 mill/uL (4.70-6.10); White Blood Cell (WBC) Count 12.9 10x3/uL (4.8-10.8)
[2022-05-01 06:57] LABS: Anion Gap 15 mmol/L (10-20); BUN (Urea Nitrogen) 51 mg/dL (8.4-25.7); Calc. Creatinine Clearance 46 mL/min (70-130); Carbon Dioxide 23 mmol/L (23-31); Chloride 111 mmol/L (98-107); Estimated GFR 50; Glucose 227 mg/dL (80-115); Phosphorus 4.8 mg/dL (2.3-4.7); Potassium 4.3 mmol/L (3.5-5.1); Sodium 145 mmol/L (136-145)
[2022-05-01] MEDS: Ipratropium/Albuterol 3 ML NEB NEB SCH (08:15)
[2022-05-01] MEDS: Insulin Glargine 30 UNITS/0.3 ML VIAL SC SCH ×2 (10:10→21:24)
[2022-05-01] MEDS: Senokot S 8.6-50 MG TAB PO SCH ×2 (10:11→21:52)
[2022-05-01] MEDS: Famotidine 20 MG TAB PO SCH ×2 (10:11→19:51)
[2022-05-01] MEDS: Aspirin 325 MG TAB PO SCH ×2 (10:11→19:51)
[2022-05-01] MEDS: Polyethylene Glycol 3350 17 GM Packet PO SCH (10:12)
[2022-05-01] MEDS: Tamsulosin HCl 0.4 MG CAP PO SCH ×2 (10:12→10:29)
[2022-05-01] MEDS: Saccharomyces boulardii 250 MG CAP PO SCH ×2 (10:12→10:29)
[2022-05-02] MEDS: Acetaminophen 325 MG TAB PO SCH ×4 (00:53→19:37)
[2022-05-02] MEDS: Piperacillin/Tazobactam 3.375 GM in Sodium Chloride 0.9% 100 ML IVPB SCH ×3 (06:02→21:37)
[2022-05-02] MEDS: Amantadine HCl 10 mg/ml Oral Solution PER TUBE SCH ×2 (08:28→21:39)
[2022-05-02] MEDS: Saccharomyces boulardii 250 MG CAP PO SCH (08:28)
[2022-05-02] MEDS: Tamsulosin HCl 0.4 MG CAP PO SCH (08:28)
[2022-05-02] MEDS: Insulin Glargine 30 UNITS/0.3 ML VIAL SC SCH ×2 (08:28→21:38)
[2022-05-02] MEDS: Aspirin 325 MG TAB PO SCH (08:29)
[2022-05-02] MEDS: Famotidine 20 MG TAB PO SCH (08:29)
[2022-05-02] MEDS: Senokot S 8.6-50 MG TAB PO SCH (09:34)
[2022-05-02] MEDS: Polyethylene Glycol 3350 17 GM Packet PO SCH (09:34)
[2022-05-02 09:36] LABS: ALT (SGPT) 117 U/L (8-55); AST (SGOT) 146 U/L (5-34); Albumin 2.6 g/dL (3.4-4.8); Alkaline Phosphatase 204 U/L (40-110); Anion Gap 15 mmol/L (10-20); BUN (Urea Nitrogen) 39 mg/dL (8.4-25.7); Bilirubin, Total 0.5 mg/dL (0.2-1.2); Calc. Creatinine Clearance 53 mL/min (70-130); Calcium 8.2 mg/dL (7.8-10.44); Carbon Dioxide 20 mmol/L (23-31); Chloride 114 mmol/L (98-107); Estimated GFR 58; Globulin 4.1 g/dL (2.4-3.5); Glucose 158 mg/dL (80-115); Potassium 4.8 mmol/L (3.5-5.1); Protein, Total 6.7 g/dL (5.8-8.1); Sodium 144 mmol/L (136-145)
[2022-05-03] MEDS: Senokot S 8.6-50 MG TAB PO SCH ×3 (02:11→22:56)
[2022-05-03] MEDS: Acetaminophen 325 MG TAB PO SCH ×5 (02:12→23:52)
[2022-05-03] MEDS: Piperacillin/Tazobactam 3.375 GM in Sodium Chloride 0.9% 100 ML IVPB SCH ×3 (05:15→21:29)
[2022-05-03] MEDS: Amantadine HCl 10 mg/ml Oral Solution PER TUBE SCH ×2 (08:33→21:29)
[2022-05-03] MEDS: Saccharomyces boulardii 250 MG CAP PO SCH (08:33)
[2022-05-03] MEDS: Insulin Glargine 30 UNITS/0.3 ML VIAL SC SCH ×2 (08:33→22:56)
[2022-05-03] MEDS: Tamsulosin HCl 0.4 MG CAP PO SCH (08:33)
[2022-05-03] MEDS: Famotidine 20 MG TAB PO SCH (08:33)
[2022-05-03] MEDS: Aspirin 325 MG TAB PO SCH (08:34)
[2022-05-03] MEDS: Polyethylene Glycol 3350 17 GM Packet PO SCH (08:34)
[2022-05-03 11:56] VITALS: BMI 26.6
[2022-05-04] MEDS: Piperacillin/Tazobactam 3.375 GM in Sodium Chloride 0.9% 100 ML IVPB SCH ×3 (05:27→20:48)
[2022-05-04] MEDS: Acetaminophen 325 MG TAB PO SCH ×4 (07:41→23:02)
[2022-05-04 09:21] LABS: #Basophils 0.1 thou/uL (0.0-0.2); #Eosinphils 0.1 thou/uL (0.0-0.7); #Lymphocytes 1.2 thou/uL (1.20-3.40); #Monocytes 1.1 thou/uL (0.11-0.59); #Neutrophils 9.6 thou/uL (1.40-6.50); %Basophils 0.4 % (0.0-1.0); %Eosinophils 1.2 % (0.0-10.0); %Lymphocytes 9.6 % (21.0-51.0); %Monocytes 8.8 % (0.0-10.0); %Neutrophils 79.9 % (42.0-75.0); Hemoglobin 7.8 g/dL (14.0-18.0); Mean Corpuscular Hemoglobin 30.9 pg (27.0-31.0); Mean Corpuscular Volume 96.5 fl (78.0-98.0); Mean Platelet Volume 7.8 fL (7.4-10.4); Platelet Count 547 10x3/uL (130-400); RBC Distribution Width 12.4 % (11.5-14.5); Red Blood Cell (RBC) Count 2.51 mill/uL (4.70-6.10)
[2022-05-04 09:52] LABS: Anion Gap 13 mmol/L (10-20); BUN (Urea Nitrogen) 33 mg/dL (8.4-25.7); Calc. Creatinine Clearance 58 mL/min (70-130); Calcium 8.1 mg/dL (7.8-10.44); Carbon Dioxide 21 mmol/L (23-31); Chloride 115 mmol/L (98-107); Estimated GFR 65; Glucose 102 mg/dL (80-115); Magnesium 2.5 mg/dL (1.6-2.6); Phosphorus 4.4 mg/dL (2.3-4.7); Sodium 145 mmol/L (136-145)
[2022-05-04] MEDS: Insulin Glargine 30 UNITS/0.3 ML VIAL SC SCH ×2 (10:12→20:41)
[2022-05-04] MEDS: Polyethylene Glycol 3350 17 GM Packet PO SCH (10:13)
[2022-05-04] MEDS: Senokot S 8.6-50 MG TAB PO SCH ×2 (10:13→20:46)
[2022-05-04] MEDS: Famotidine 20 MG TAB PO SCH (10:16)
[2022-05-04] MEDS: Tamsulosin HCl 0.4 MG CAP PO SCH (10:16)
[2022-05-04] MEDS: Aspirin 325 MG TAB PO SCH (10:16)
[2022-05-04] MEDS: Saccharomyces boulardii 250 MG CAP PO SCH (10:17)
[2022-05-04] MEDS: Amantadine HCl 10 mg/ml Oral Solution PER TUBE SCH ×2 (10:17→20:48)
[2022-05-05] MEDS: Piperacillin/Tazobactam 3.375 GM in Sodium Chloride 0.9% 100 ML IVPB SCH ×3 (04:25→21:28)
[2022-05-05] MEDS: Acetaminophen 325 MG TAB PO SCH ×4 (05:06→23:06)
[2022-05-05] MEDS: Insulin Glargine 30 UNITS/0.3 ML VIAL SC SCH ×2 (09:43→21:23)
[2022-05-05] MEDS: Famotidine 20 MG TAB PO SCH (09:43)
[2022-05-05] MEDS: Saccharomyces boulardii 250 MG CAP PO SCH (09:43)
[2022-05-05] MEDS: Tamsulosin HCl 0.4 MG CAP PO SCH (09:43)
[2022-05-05] MEDS: Aspirin 325 MG TAB PO SCH (09:43)
[2022-05-05] MEDS: Polyethylene Glycol 3350 17 GM Packet PO SCH (09:44)
[2022-05-05] MEDS: Senokot S 8.6-50 MG TAB PO SCH ×2 (09:44→21:23)
[2022-05-05] MEDS: Amantadine HCl 10 mg/ml Oral Solution PER TUBE SCH ×2 (09:46→21:28)
[2022-05-05] MEDS ORDERED: Sodium Chloride 0.9% 100 ML ONE (21:29)
[2022-05-06] MEDS: Piperacillin/Tazobactam 3.375 GM in Sodium Chloride 0.9% 100 ML IVPB SCH ×3 (05:11→21:48)
[2022-05-06] MEDS: Acetaminophen 325 MG TAB PO SCH ×3 (05:11→18:17)
[2022-05-06] MEDS: HumaLOG 300 UNITS/3 ML VIAL SC PRN (05:11)
[2022-05-06] MEDS: Famotidine 20 MG TAB PO SCH (08:35)
[2022-05-06] MEDS: Aspirin 325 MG TAB PO SCH (08:35)
[2022-05-06] MEDS: Tamsulosin HCl 0.4 MG CAP PO SCH (08:36)
[2022-05-06] MEDS: Saccharomyces boulardii 250 MG CAP PO SCH (08:36)
[2022-05-06] MEDS: Senokot S 8.6-50 MG TAB PO SCH ×2 (08:37→22:19)
[2022-05-06] MEDS: Insulin Glargine 30 UNITS/0.3 ML VIAL SC SCH ×2 (08:37→21:48)
[2022-05-06] MEDS: Polyethylene Glycol 3350 17 GM Packet PO SCH (08:38)
[2022-05-06] MEDS: Amantadine HCl 10 mg/ml Oral Solution PER TUBE SCH ×2 (10:53→22:19)
[2022-05-07] MEDS: Acetaminophen 325 MG TAB PO SCH ×5 (00:07→23:09)
[2022-05-07] MEDS: Piperacillin/Tazobactam 3.375 GM in Sodium Chloride 0.9% 100 ML IVPB SCH ×2 (05:15→12:25)
[2022-05-07] MEDS: Polyethylene Glycol 3350 17 GM Packet PO SCH (08:56)
[2022-05-07] MEDS: Senokot S 8.6-50 MG TAB PO SCH ×2 (08:57→20:48)
[2022-05-07] MEDS: Amantadine HCl 10 mg/ml Oral Solution PER TUBE SCH ×2 (08:57→20:47)
[2022-05-07] MEDS: Saccharomyces boulardii 250 MG CAP PO SCH (08:57)
[2022-05-07] MEDS: Famotidine 20 MG TAB PO SCH (08:57)
[2022-05-07] MEDS: Aspirin 325 MG TAB PO SCH (08:57)
[2022-05-07] MEDS: Tamsulosin HCl 0.4 MG CAP PO SCH (08:57)
[2022-05-07] MEDS: Insulin Glargine 30 UNITS/0.3 ML VIAL SC SCH ×2 (09:19→20:34)
[2022-05-07] MEDS: HumaLOG 300 UNITS/3 ML VIAL SC PRN (16:59)
[2022-05-08] MEDS: Acetaminophen 325 MG TAB PO SCH ×4 (05:33→23:06)
[2022-05-08] MEDS: Saccharomyces boulardii 250 MG CAP PO SCH (09:17)
[2022-05-08] MEDS: Famotidine 20 MG TAB PO SCH (09:17)
[2022-05-08] MEDS: Insulin Glargine 30 UNITS/0.3 ML VIAL SC SCH ×2 (09:17→20:54)
[2022-05-08] MEDS: Tamsulosin HCl 0.4 MG CAP PO SCH (09:17)
[2022-05-08] MEDS: Senokot S 8.6-50 MG TAB PO SCH ×2 (09:17→21:03)
[2022-05-08] MEDS: Aspirin 325 MG TAB PO SCH (09:17)
[2022-05-08] MEDS: Amantadine HCl 10 mg/ml Oral Solution PER TUBE SCH ×2 (09:17→21:02)
[2022-05-08] MEDS: Polyethylene Glycol 3350 17 GM Packet PO SCH (09:18)
[2022-05-08] MEDS: HumaLOG 300 UNITS/3 ML VIAL SC PRN ×2 (13:26→17:26)
[2022-05-09] MEDS: Acetaminophen 325 MG TAB PO SCH ×4 (05:06→23:57)
[2022-05-09] MEDS: HumaLOG 300 UNITS/3 ML VIAL SC PRN (05:06)
[2022-05-09] MEDS: Insulin Glargine 30 UNITS/0.3 ML VIAL SC SCH ×2 (09:40→21:13)
[2022-05-09] MEDS: Senokot S 8.6-50 MG TAB PO SCH ×2 (09:40→21:13)
[2022-05-09] MEDS: Polyethylene Glycol 3350 17 GM Packet PO SCH (09:41)
[2022-05-09] MEDS: Famotidine 20 MG TAB PO SCH (09:49)
[2022-05-09] MEDS: Tamsulosin HCl 0.4 MG CAP PO SCH (09:50)
[2022-05-09] MEDS: Aspirin 325 MG TAB PO SCH (09:50)
[2022-05-09] MEDS: Saccharomyces boulardii 250 MG CAP PO SCH (09:50)
[2022-05-09] MEDS: Sertraline 25 MG TAB PO SCH (09:50)
[2022-05-09] MEDS: Amantadine HCl 10 mg/ml Oral Solution PER TUBE SCH ×2 (17:56→21:13)
[2022-05-10] MEDS: Acetaminophen 325 MG TAB PO SCH ×3 (05:59→18:11)
[2022-05-10] MEDS: Amantadine HCl 10 mg/ml Oral Solution PER TUBE SCH (09:53)
[2022-05-10] MEDS: Tamsulosin HCl 0.4 MG CAP PO SCH (09:54)
[2022-05-10] MEDS: Saccharomyces boulardii 250 MG CAP PO SCH (09:54)
[2022-05-10] MEDS: Aspirin 325 MG TAB PO SCH (09:54)
[2022-05-10] MEDS: Famotidine 20 MG TAB PO SCH (09:54)
[2022-05-10] MEDS: Sertraline 25 MG TAB PO SCH (09:54)
[2022-05-10] MEDS: Polyethylene Glycol 3350 17 GM Packet PO SCH (09:55)
[2022-05-10] MEDS: Insulin Glargine 30 UNITS/0.3 ML VIAL SC SCH ×2 (09:55→21:27)
[2022-05-10] MEDS: Senokot S 8.6-50 MG TAB PO SCH ×2 (09:55→21:22)
[2022-05-10] MEDS ORDERED: Magnevist 469MG/ML 20 ML VIAL ONE (13:55)
[2022-05-11] MEDS: Acetaminophen 325 MG TAB PO SCH ×4 (00:32→18:00)
[2022-05-11] MEDS: Saccharomyces boulardii 250 MG CAP PO SCH (09:05)
[2022-05-11] MEDS: Aspirin 325 MG TAB PO SCH (09:05)
[2022-05-11] MEDS: Famotidine 20 MG TAB PO SCH (09:05)
[2022-05-11] MEDS: Tamsulosin HCl 0.4 MG CAP PO SCH (09:05)
[2022-05-11] MEDS: Senokot S 8.6-50 MG TAB PO SCH ×2 (09:06→20:55)
[2022-05-11] MEDS: Polyethylene Glycol 3350 17 GM Packet PO SCH (09:06)
[2022-05-11] MEDS: Insulin Glargine 30 UNITS/0.3 ML VIAL SC SCH ×2 (09:06→20:55)
[2022-05-11] MEDS: Sertraline 25 MG TAB PO SCH (09:06)
[2022-05-12] MEDS: Acetaminophen 325 MG TAB PO SCH ×4 (03:43→17:50)
[2022-05-12 07:30] LABS: Anion Gap 11 mmol/L (10-20); BUN (Urea Nitrogen) 16 mg/dL (8.4-25.7); Calc. Creatinine Clearance 92 mL/min (70-130); Calcium 8.8 mg/dL (7.8-10.44); Carbon Dioxide 23 mmol/L (23-31); Chloride 109 mmol/L (98-107); Estimated GFR 98; Glucose 64 mg/dL (80-115); Magnesium 1.8 mg/dL (1.6-2.6); Phosphorus 3.8 mg/dL (2.3-4.7); Potassium 3.6 mmol/L (3.5-5.1); Sodium 139 mmol/L (136-145)
[2022-05-12] MEDS ORDERED: Magnesium 2 GM/50 ML(in water) 2 GM in Premix Bag 1 BAG IVPB SCH (08:00)
[2022-05-12] MEDS ORDERED: Potassium Phosphate 30 MMOL, Magnesium Sulfate 2 GM in Sodium Chloride 0.9% 250 ML 250 ML IVPB SCH (08:30)
[2022-05-12] MEDS: Tamsulosin HCl 0.4 MG CAP PO SCH (09:53)
[2022-05-12] MEDS: Aspirin 325 MG TAB PO SCH (09:53)
[2022-05-12] MEDS: Senokot S 8.6-50 MG TAB PO SCH ×2 (09:53→20:24)
[2022-05-12] MEDS: Sertraline 25 MG TAB PO SCH (09:53)
[2022-05-12] MEDS: Famotidine 20 MG TAB PO SCH ×2 (09:53→20:25)
[2022-05-12] MEDS: Polyethylene Glycol 3350 17 GM Packet PO SCH (09:53)
[2022-05-12] MEDS: Saccharomyces boulardii 250 MG CAP PO SCH (09:53)
[2022-05-12] MEDS: Insulin Glargine 30 UNITS/0.3 ML VIAL SC SCH ×2 (09:54→20:25)
[2022-05-13] MEDS: Acetaminophen 325 MG TAB PO SCH ×4 (00:31→18:14)
[2022-05-13] MEDS: Senokot S 8.6-50 MG TAB PO SCH ×2 (09:25→20:58)
[2022-05-13] MEDS: Sertraline 25 MG TAB PO SCH (09:25)
[2022-05-13] MEDS: Insulin Glargine 30 UNITS/0.3 ML VIAL SC SCH ×2 (09:26→20:58)
[2022-05-13] MEDS: Famotidine 20 MG TAB PO SCH ×2 (09:26→20:58)
[2022-05-13] MEDS: Saccharomyces boulardii 250 MG CAP PO SCH (09:26)
[2022-05-13] MEDS: Tamsulosin HCl 0.4 MG CAP PO SCH (09:26)
[2022-05-13] MEDS: Polyethylene Glycol 3350 17 GM Packet PO SCH (09:26)
[2022-05-13] MEDS: Aspirin 325 MG TAB PO SCH (09:26)
[2022-05-13] MEDS: HumaLOG 300 UNITS/3 ML VIAL SC PRN (12:56)
[2022-05-14] MEDS: Acetaminophen 325 MG TAB PO SCH ×5 (01:10→23:45)
[2022-05-14] MEDS: Senokot S 8.6-50 MG TAB PO SCH ×2 (08:50→21:51)
[2022-05-14] MEDS: Sertraline 25 MG TAB PO SCH (08:50)
[2022-05-14] MEDS: Saccharomyces boulardii 250 MG CAP PO SCH (08:50)
[2022-05-14] MEDS: Aspirin 325 MG TAB PO SCH (08:50)
[2022-05-14] MEDS: Tamsulosin HCl 0.4 MG CAP PO SCH (08:51)
[2022-05-14] MEDS: Polyethylene Glycol 3350 17 GM Packet PO SCH (08:51)
[2022-05-14] MEDS: Famotidine 20 MG TAB PO SCH ×2 (08:51→21:51)
[2022-05-14] MEDS: Insulin Glargine 30 UNITS/0.3 ML VIAL SC SCH ×2 (08:51→21:53)
[2022-05-14] MEDS: HumaLOG 300 UNITS/3 ML VIAL SC PRN (21:58)
[2022-05-15] MEDS: Acetaminophen 325 MG TAB PO SCH ×3 (06:23→19:10)
[2022-05-15 06:49] LABS: Hemoglobin 9.6 g/dL (14.0-18.0); Platelet Count 332 10x3/uL (130-400)
[2022-05-15] MEDS: Senokot S 8.6-50 MG TAB PO SCH ×2 (08:35→21:27)
[2022-05-15] MEDS: Sertraline 25 MG TAB PO SCH (08:35)
[2022-05-15] MEDS: Saccharomyces boulardii 250 MG CAP PO SCH (08:35)
[2022-05-15] MEDS: Aspirin 325 MG TAB PO SCH (08:35)
[2022-05-15] MEDS: Tamsulosin HCl 0.4 MG CAP PO SCH (08:35)
[2022-05-15] MEDS: Famotidine 20 MG TAB PO SCH ×2 (08:35→21:28)
[2022-05-15] MEDS ORDERED: metFORMIN 500 MG TAB PO SCH (08:45)
[2022-05-15] MEDS: Polyethylene Glycol 3350 17 GM Packet PO SCH (08:53)
[2022-05-15] MEDS: metFORMIN 500 MG TAB PO SCH (19:10)
[2022-05-16] MEDS: Acetaminophen 325 MG TAB PO SCH ×6 (00:19→23:52)
[2022-05-16] MEDS: Saccharomyces boulardii 250 MG CAP PO SCH (09:44)
[2022-05-16] MEDS: Senokot S 8.6-50 MG TAB PO SCH ×2 (09:44→21:51)
[2022-05-16] MEDS: metFORMIN 500 MG TAB PO SCH ×3 (09:44→18:25)
[2022-05-16] MEDS: Famotidine 20 MG TAB PO SCH ×2 (09:44→21:52)
[2022-05-16] MEDS: Tamsulosin HCl 0.4 MG CAP PO SCH (09:44)
[2022-05-16] MEDS: Sertraline 25 MG TAB PO SCH (09:44)
[2022-05-16] MEDS: Polyethylene Glycol 3350 17 GM Packet PO SCH (09:44)
[2022-05-16] MEDS: Aspirin 325 MG TAB PO SCH (09:44)
[2022-05-16 14:26] LABS: Bacteria/HPF 4+ HPF (None Seen); Bilirubin Negative (Negative); Blood, Urine Negative (Negative); CAUTI Indications for Culture Alt mental st,lethar; Clarity Turbid (Clear); Glucose, Urine (Dipstick) Normal (Negative); Ketone, Urine Negative (Negative); Leukocyte 500 Leu/uL (Negative); Nitrite 2+ (Negative); Protein, Urine (Dipstick) 30 mg/dL (Neg-Trace); Renal Epithelial 0-3 HPF (None Seen); Specific Gravity, Urine 1.026 (1.002-1.036); Squamous Epithelial None Seen HPF (0-3); Urobilinogen Normal mg/dL (Less than 2); WBC/HPF Greater than 50 HPF (0-3)
[2022-05-16 14:27] LABS: RBC/HPF 0-3 HPF (0-3); Urine Culture Reflex Yes Yes
[2022-05-16] MEDS: Nitrofurantoin Monohyd/M-Cryst 100 MG CAP PO SCH (21:52)
[2022-05-17] MEDS: Acetaminophen 325 MG TAB PO SCH ×3 (06:28→18:12)
[2022-05-17] MEDS: Sertraline 25 MG TAB PO SCH (08:42)
[2022-05-17] MEDS: Nitrofurantoin Monohyd/M-Cryst 100 MG CAP PO SCH ×2 (08:42→22:14)
[2022-05-17] MEDS: Famotidine 20 MG TAB PO SCH ×2 (08:42→22:13)
[2022-05-17] MEDS: Saccharomyces boulardii 250 MG CAP PO SCH (08:42)
[2022-05-17] MEDS: metFORMIN 500 MG TAB PO SCH ×2 (08:43→18:09)
[2022-05-17] MEDS: Senokot S 8.6-50 MG TAB PO SCH ×2 (08:43→22:13)
[2022-05-17] MEDS: Tamsulosin HCl 0.4 MG CAP PO SCH (08:43)
[2022-05-17] MEDS: Polyethylene Glycol 3350 17 GM Packet PO SCH (08:43)
[2022-05-17] MEDS: Aspirin 325 MG TAB PO SCH (08:43)
[2022-05-18] MEDS: Acetaminophen 325 MG TAB PO SCH ×2 (00:02→06:18)
[2022-05-18] MEDS: Tamsulosin HCl 0.4 MG CAP PO SCH (09:40)
[2022-05-18] MEDS: metFORMIN 500 MG TAB PO SCH (09:41)
[2022-05-18] MEDS: Saccharomyces boulardii 250 MG CAP PO SCH (09:41)
[2022-05-18] MEDS: Sertraline 25 MG TAB PO SCH (09:41)
[2022-05-18] MEDS: Polyethylene Glycol 3350 17 GM Packet PO SCH (09:41)
[2022-05-18] MEDS: Senokot S 8.6-50 MG TAB PO SCH (09:41)
[2022-05-18] MEDS: Aspirin 325 MG TAB PO SCH (09:41)
[2022-05-18] MEDS: Famotidine 20 MG TAB PO SCH (09:41)
[2022-05-18] MEDS: Nitrofurantoin Monohyd/M-Cryst 100 MG CAP PO SCH (09:41)
[2022-05-18 12:02] VITALS: BP 149/81; TEMP 98.4
== END 2022-05-18 13:27 | disposition home or self-care (01) | DRG 963 ==
LOC: ERS 13:19 → CCU 14:44 → IMCU/EMU 04-20 16:03 → SURG A 04-25 19:57 → CCU 04-28 07:59 → IMCU/EMU 04-30 10:32 → SURG A 04-30 19:42
PROVIDERS: ADMIT Surgery; ATTEND Surgery
PROC: 0T9B70Z Drainage of Bladder with Drainage Device, Via Natural or Artificial Opening (ICD-10-PCS; principal; 2022-04-17)
PROC: 0DH67UZ Insertion of Feeding Device into Stomach, Via Natural or Artificial Opening (ICD-10-PCS; 2022-04-17)
PROC: 4A133R1 Monitoring of Arterial Saturation, Peripheral, Percutaneous Approach (ICD-10-PCS; 2022-04-17)
PROC: 30233J1 Transfusion of Nonautologous Serum Albumin into Peripheral Vein, Percutaneous Approach (ICD-10-PCS; 2022-04-17)
PROC: 0BH17EZ Insertion of Endotracheal Airway into Trachea, Via Natural or Artificial Opening (ICD-10-PCS; 2022-04-17)
PROC: 5A1945Z Respiratory Ventilation, 24-96 Consecutive Hours (ICD-10-PCS; 2022-04-17)
PROC: 5A09457 Assistance with Respiratory Ventilation, 24-96 Consecutive Hours, Continuous Positive Airway Pressure (ICD-10-PCS; 2022-04-28)
DX: S06.6X9A Traumatic subarachnoid hemorrhage with loss of consciousness of unspecified duration, initial encounter (principal); I50.23 Acute on chronic systolic (congestive) heart failure; S14.129A Central cord syndrome at unspecified level of cervical spinal cord, initial encounter; I63.9 Cerebral infarction, unspecified; J69.0 Pneumonitis due to inhalation of food and vomit; J96.00 Acute respiratory failure, unspecified whether with hypoxia or hypercapnia; S12.120A Other displaced dens fracture, initial encounter for closed fracture; S82.141A Displaced bicondylar fracture of right tibia, initial encounter for closed fracture; E87.21 Acute metabolic acidosis; D62 Acute posthemorrhagic anemia; N39.0 Urinary tract infection, site not specified; R47.01 Aphasia; N17.9 Acute kidney failure, unspecified; S15.102A Unspecified injury of left vertebral artery, initial encounter; Z51.5 Encounter for palliative care; R40.2421 Glasgow coma scale score 9-12, in the field [EMT or ambulance]; S06.5X9A Traumatic subdural hemorrhage with loss of consciousness of unspecified duration, initial encounter; E83.42 Hypomagnesemia; E83.39 Other disorders of phosphorus metabolism; E11.65 Type 2 diabetes mellitus with hyperglycemia; S01.01XA Laceration without foreign body of scalp, initial encounter; L89.159 Pressure ulcer of sacral region, unspecified stage; R33.9 Retention of urine, unspecified; B96.20 Unspecified Escherichia coli [E. coli] as the cause of diseases classified elsewhere; R13.10 Dysphagia, unspecified; G89.11 Acute pain due to trauma; F32.A Depression, unspecified; V89.2XXA Person injured in unspecified motor-vehicle accident, traffic, initial encounter; Z78.1 Physical restraint status
CPT/HCPCS: 31500; 36415; 36416; 36600; 51702; 70450; 70498; 70544; 70549; 70551; 71045; 71260; 72125; 74018; 74177; 74230; 80048; 80053; 80306; 80307; 81001; 81003; 81015; 82805; 83036; 83605; 83690; 83735; 83880; 84100; 85014; 85018; 85025; 85049; 85610; 85730; 86850; 86900; 86901; 87040; 87070; 87077; 87086; 87186; 87205; 87811; 90471; 90715; 93306; 93970; 94002; 94003; 94640; 94660; 96374; 96375; 97139; A9579; G0390; J0360; J0692; J1650; J1815; J1940; J2001; J2250; J2405; J2543; J2704; J3010; J3475; J3490; J7050; J7620; L0174; P9045; Q9967; S0028; U0002